=== PATIENT | male | born 1975 | race Caucasian/White ===

== ENCOUNTER 2019-05-08 13:45 | Emergency (ER) | payer BC ==
[~2019-05-08] VITALS: Ht 193 cm; Wt 110.5 kg
[~2019-05-08 13:45] MED LIST: NO HOME MEDICATIONS; NORCO 325 MG-51 TAB PO; SEPTRA DS 8001 TAB PO
[2019-05-08 14:01] VITALS: BP 132/78; TEMP 97.1
[2019-05-08 14:45] VITALS: PULSE 94
== END 2019-05-08 14:45 | disposition home or self-care (01) ==
LOC: COL.ER 13:45
DX: S62.306A Unspecified fracture of fifth metacarpal bone, right hand, initial encounter for closed fracture (principal); K21.9 Gastro-esophageal reflux disease without esophagitis; Z98.890 Other specified postprocedural states; W20.8XXA Other cause of strike by thrown, projected or falling object, initial encounter; Y92.009 Unspecified place in unspecified non-institutional (private) residence as the place of occurrence of the external cause
CPT/HCPCS: Q4021